=== PATIENT | female | born 1980 | race African-American/Black ===

== ENCOUNTER 2022-09-06 12:26 | Emergency (ER) | payer OTHER ==
[2022-09-06 13:02] VITALS: BP 128/81; PULSE 87; RESP 19; TEMP 98.2; BMI 31.1
== END 2022-09-06 16:33 | disposition home or self-care (01) ==
LOC: JER 12:26
DX: J06.9 Acute upper respiratory infection, unspecified (principal)
CPT/HCPCS: 0241U-QW; 99283-25

== ENCOUNTER 2023-12-04 00:57 | Emergency (ER) | payer OTHER ==
[2023-12-04 01:11] VITALS: BP 127/75; PULSE 102; RESP 20; TEMP 98.4; BMI 33.6
[2023-12-04] MEDS ORDERED: SODIUM CHLORIDE 0.9% 500 ML INFUS.BAG IV ONE (01:33)
[2023-12-04 02:14] LABS: BASO % 0.9 % (0-2.0); EOS % 2.9 % (0-4.5); HEMATOCRIT 26.9 % (32.4-45.2); HEMOGLOBIN 7.7 GM/dL (10.7-15.3); LYMPH % 42.5 % (8-40); MCHC 28.7 g/dl (32.0-36.0); MEAN CELL VOLUME 63.9 fl (80-96); MEAN PLT VOLUME 7.4 fl (7.5-11.1); MONO % 7.3 % (3.8-10.2); NEUT % 46.4 % (42.8-82.8); PLATELET COUNT 509 10^3/uL (134-434); RBC 4.21 M/mm3 (3.60-5.2); WHITE BLOOD COUNT 5.5 K/mm3 (4.0-10.0)
[2023-12-04 02:16] LABS: MCH 18.3 pg (25.7-33.7)
[2023-12-04 02:33] LABS: POTASSIUM 3.7 mmol/L (3.5-5.1)
[2023-12-04 02:35] LABS: CALCIUM 9.3 mg/dL (8.5-10.1)
[2023-12-04 02:36] LABS: ALBUMIN 3.9 g/dl (3.4-5.0)
[2023-12-04 02:39] LABS: CREATININE 0.8 mg/dL (0.55-1.3)
[2023-12-04 02:41] LABS: BILIRUBIN,TOTAL 0.2 mg/dL (0.2-1); TOT PROT 7.8 g/dl (6.4-8.2)
[2023-12-04 03:01] LABS: PH,URINE 5.5 (5.0-8.0); URINE APPEARANCE CLEAR; URINE BILIRUBIN NEGATIVE (NEGATIVE); URINE COLOR YELLOW; URINE GLUCOSE (UA) NEGATIVE (NEGATIVE); URINE KETONE TRACE (NEGATIVE); URINE LEUK ESTERASE NEGATIVE (NEGATIVE); URINE NITRITE NEGATIVE (NEGATIVE); URINE PROTEIN NEGATIVE (NEGATIVE)
[2023-12-04 05:52] LABS: ANISOCYTOSIS 3+; MACROCYTOSIS 0; ROULEAU 1+; TARGET CELLS 1+
== END 2023-12-04 04:51 | disposition home or self-care (01) ==
LOC: JER 00:57
DX: D64.9 Anemia, unspecified (principal); R53.1 Weakness; R53.83 Other fatigue
CPT/HCPCS: 0241U-QW; 36415; 71045-TC-FY; 80053; 81003; 82550; 84484; 84703; 85025; 87086; 93005; 93010; 99285-25